=== PATIENT | female | born 1955 ===

== ENCOUNTER 2018-03-10 08:37 | Emergency (ER) | payer OTHER ==
[~2018-03-10] VITALS: Ht 154.9 cm; Wt 63.5 kg
== END 2018-03-10 15:41 | disposition home or self-care (01) ==
LOC: ER 08:37
DX: K29.60 Other gastritis without bleeding (principal)

== ENCOUNTER 2018-03-11 09:36 | Emergency (ER) | payer OTHER ==
[~2018-03-11] VITALS: Ht 162.6 cm; Wt 63.5 kg
[2018-03-12] MEDS ORDERED: ZOFRAN ODT4 MG PO ×2 (07:21→07:23)
[2018-03-12] MEDS ORDERED: RANITIDINE HCL300 MG PO (07:23)
== END 2018-03-12 08:03 | disposition home or self-care (01) ==
LOC: ER 09:36
DX: K29.60 Other gastritis without bleeding (principal)